=== PATIENT | male | born 1985 | race Caucasian/White ===

== ENCOUNTER 2019-04-13 10:36 | Inpatient (IN) | payer OTHER ==
[~2019-04-13] VITALS: Ht 188 cm; Wt 94.0 kg
[2019-04-13 11:42] VITALS: BP 128/82
--- NOTE | 2019-04-13 11:42 | NUR ---
33 year old MALE admitted to room # 506-2 for stabilization. Reports an addiction to HEROIN,AND ALCOHOL last used 8 hours prior to admission. Compliant with admission procedure. Patient denies any anxiety. See assessment forms for additional information about patient status.
[2019-04-13 12:34] LABS: BILIRUBIN NEGATIVE (NEGATIVE); BLOOD NEGATIVE (NEGATIVE); CLARITY CLEAR (CLEAR); COLOR YELLOW (YELLOW); GLUCOSE NEGATIVE (NEGATIVE); KETONE NEGATIVE (NEGATIVE); LEUKO ESTERASE TRACE (NEGATIVE); NITRITE NEGATIVE (NEGATIVE); SPECIFIC GRAVITY 1.025 (1.005-1.030); UROBILINOGEN 0.2 E.U./dl (0.2-1.0)
[2019-04-13 12:39] LABS: URINE AMPHETAMINES < 1000 (1000ng/ml); URINE BARBITURATES > 200 (200ng/ml); URINE BENZODIAZEPINES < 200 (200ng/ml); URINE CANNABINOIDS (THC) > 50 (50ng/ml); URINE COCAINE > 300 (300ng/ml); URINE METHADONE < 300 (300ng/ml); URINE OPIATES < 300 (300ng/ml); URINE PHENCYCLIDINE < 25 (25ng/ml)
[2019-04-13 12:50] LABS: MUCOUS TRACE; WBC 31-40 wbc/hpf (0-5)
--- NOTE | 2019-04-13 12:55 | NUR ---
IV started left arm with #22 protective cath after 0 attempts. Site prepped with Chloroprep. Sterile dressing applied. Patient tolerated procedure well. CHICHI BALTAZAR
[2019-04-13 12:56] LABS: BASO % 0.5 % (0.0-1.0); EOS # 0.1 10*3/uL (0.0-0.4); EOS % 0.9 % (1.0-4.0); HEMATOCRIT 43.6 % (42.0-52.0); HEMOGLOBIN 14.4 g/dl (14.0-18.0); LYMPH # 1.5 10*3/uL (1.3-4.4); LYMPH % 16.6 % (27.0-41.0); MEAN CORPUSCULAR HGB 29.4 pg (27.0-31.0); MEAN PLATELET VOLUME 10.2 fl (9.6-12.3); MONO # 0.5 10*3/uL (0.1-1.0); MONO % 5.5 % (3.0-9.0); NEUT # 6.7 10*3/uL (2.3-7.9); NEUT % 76.3 % (47.0-73.0); PLATELET COUNT AUTOMATED 222 10*3/uL (130-400); RED CELL DISTRI WIDTH 12.1 % (0-14.5); WHITE BLOOD COUNT 8.7 10*3/uL (4.8-10.8)
--- NOTE | 2019-04-13 13:01 | NUR ---
MEDICATED WITH BENTYL ROBAXIN AND VISTARIL PER ORDERS.
[2019-04-13 13:10] LABS: ALBUMIN 3.5 gm/dl (3.1-4.5); ALKALINE PHOSPHATASE 70 U/L (45-117); BUN 14 mg/dl (7-24); CHLORIDE 108 mmol/L (98-107); CREATININE 1.07 mg/dL (0.70-1.30); POTASSIUM 3.8 mmol/L (3.5-5.1); SGOT/AST 24 IU/L (3-35); SGPT/ALT 54 U/L (12-78); SODIUM 140 mmol/L (136-145); TOTAL PROTEIN 6.9 gm/dL (6.4-8.2)
[2019-04-13 13:14] LABS: ETHYL ALCOHOL < 3.0 mg/dl (<3)
--- NOTE | 2019-04-13 14:48 | NUR ---
BENTYL ROBAXIN AND VISTARIL HELPED, ALONG WITH STRAIGHT SUBUTEX AND LIBRIUM EARLIER. NICOTINE INHALER JUST DISPENCED WELL.
[2019-04-13 16:00] VITALS: BP 133/71
--- NOTE | 2019-04-13 17:02 | NUR ---
Patient displaying withdrawal symptoms, including: irritability, anxiousness, restlessness and agitation, complicated by impulsive behavior. Patient scores a 5 on the withdrawal scale. Scheduled LIBRIUM /PRN IV ATIVAN medications provided, doctor MUMTAZ PRESENT &notified of patient's agitation and AMA potential. Will continue to monitor medication effectiveness. PATIENT C/O SOME NAUSEA BUT JUST ORDERED A VERY LARGE HEAVY DINNER. AMBULATING IN HART FREQ. REMINDED TO NOT LEAVE THE FLOOR.
--- NOTE | 2019-04-13 18:13 | NUR ---
Patient displaying withdrawal symptoms, including: irritability, anxiousness, restlessness and agitation, complicated by impulsive behavior. Patient scores a 7 on the withdrawal scale. CIWA 17 AFTER IV ATIVAN. PRN medications ZOFRAN, ROBAXIN, VISTARIL, MOTRIN GIVEN. Will continue to monitor medication effectiveness.
--- NOTE | 2019-04-13 18:27 | NUR ---
WALKED PAST PATIENT ROOM AND PATIENT IS LYING IN BED WITH VISIBLE PERSPIRATION, LEGS JERKING IN CONSTANT MOTION AND ROLLING ABOUT.
--- NOTE | 2019-04-13 19:13 | NUR ---
INFORMED THAT PATIENT IS HAVING DETOX SYMPTOMS AT THIS TIME AND MEDICATION NOT BEING EFFECTIVE, PATIENT IS SWEATING/ANXIOUS/TREMORS. STATES TO CHANGE IV ATIVEN FROM 6 TO Q4HR PRN AND TO GIVE ADDITIONAL X1 DOSE 2MG IV ATIVAN.
--- NOTE | 2019-04-13 19:45 | NUR ---
PATIENT MEDICATED WITH X1 DOSE IV 2MG ATIVAN. WILL MONITOR
[2019-04-13 20:00] VITALS: BP 131/76
--- NOTE | 2019-04-13 20:45 | NUR ---
PATIENT RESTING IN BED, NO OVERT DISTRESS NOTED. EYES CLOSED. RESP ARE ERND ON ROOM AIR. X1 DOSE IV ATIVAN EFFECTIVE.
--- NOTE | 2019-04-13 21:08 | NUR ---
PATIENT MEDICATED WITH BENTYL, TRAZADONE AND TYLENOL FOR WITHDRAWAL SYMPTOMS AND FOR INSOMNIA. WILL MONITOR
--- NOTE | 2019-04-13 23:09 | NUR ---
PATIENT MEDICATED WITH IV ATIVAN 2MG FOR COMPLAINTS OF ANXIETY AND AGITATION. WILL CONTINUE TO MONITOR. CALL LIGHT IN REACH.
[2019-04-14] VITALS: BP 131/76
[2019-04-14 08:00] VITALS: BP 136/79
--- NOTE | 2019-04-14 10:05 | NUR ---
PATIENT MEDICATED WITH ROBAXIN,BENTYL,MOTRIN,ZOFRN,AND VISTARIL PER ORDERS AND REQUEST.
--- NOTE | 2019-04-14 11:37 | NUR ---
ROBAXIN,BENTYL,VISTARIL,MOTRIN,AND ZOFRAN HELPED THAT WAS GIVEN EARLIER. PATIENT SHOWERED AND IS RESTING.
[2019-04-14 12:00] VITALS: BP 121/66
--- NOTE | 2019-04-14 13:16 | NUR ---
PATIENT STATED THAT HE WOULD LIKE TO FOLLOW UP WITH [facility] IN [place] FOR HIS AFTERCARE PLAN. PATIENT IS WANTING THE VIVITROL SHOT. DENNISE SANTOS B.A. CLINICAL SAFETY SPECIALIST
--- NOTE | 2019-04-14 14:09 | NUR ---
WHILE MEDICATING PATIENT WITH STRAIGHT LIBRIUM AND SUBUTEX HE IS REQUESTING ATIVAN WELL. EDUCATED TO SEE IF THESE STRAIGHT MEDICATIONS HELP FIRST THEN CAN GIVE ATIVAN IF STILL NEEDED.
--- NOTE | 2019-04-14 15:32 | NUR ---
MEDICATED WITH ATIVAN PER ORDER AND REQUEST.
[2019-04-14 16:00] VITALS: BP 127/66
[2019-04-14 20:00] VITALS: BP 131/73
--- NOTE | 2019-04-14 21:24 | NUR ---
PATIENT MEDICATED WITH IV ATIVAN 2MG FOR COMPLAINTS OF ANXIETY AND AGITATION. WILL CONTINUE TO MONITOR. CALL LIGHT IN REACH.
--- NOTE | 2019-04-14 21:29 | NUR ---
MEDICATED WITH TRAZODONE FOR COMPLAINTS OF INSOMNIA.
[2019-04-15] VITALS: BP 131/74
[2019-04-15 08:00] VITALS: BP 130/82
--- NOTE | 2019-04-15 08:13 | NUR ---
PATIENT COMPLAINS OF ANXIETY. MEDICATED PER ORDER. WILL CONTINUE TO MONITOR FOR RELIEF. VOICES NO OTHER CONCERNS AT THIS TIME. RESTING IN BED, CALL LIGHT WITHIN REACH.
--- NOTE | 2019-04-15 11:40 | NUR ---
PATIENT COMPLAINS OF ANXIETY. MEDICATED PER ORDER. WILL CONTINUE TO MONITOR FOR RELIEF. VOICES NO OTHER CONCERNS AT THIS TIME. RESTING IN BED. CALL LIGHT WITH IN REACH.
--- NOTE | 2019-04-15 11:59 | NUR ---
MSIV started right wrist with #22 protective cath after 1 attempts. Site prepped with Chloroprep. Sterile dressing applied. Patient tolerated procedure well. NEGRO CARY
--- NOTE | 2019-04-15 12:06 | NUR ---
PATIENT CONTINUED TO VOICE COMPLAINT OF ANXIETY. MEDICATED WITH VISTARIL. WILL CONTINUE TO MONITOR FOR RELIEF. NO OTHER CONCERNS AT THIS TIME. RESTING IN BED. CALL LIGHT WITHIN REACH.
--- NOTE | 2019-04-15 12:54 | NUR ---
PATIENT IS GOING TO FOLLOW UP WITH [facility] IN [place] FOR OUTPATIENT TREATMENT. PATIENT IS WANTING THE VIVITROL SHOT. DENNISE SANTOS B.A. RELIGION PROFESSOR
--- NOTE | 2019-04-15 13:40 | NUR ---
Shift chart check completed.
--- NOTE | 2019-04-15 15:44 | NUR ---
PATIENT COMPLAINS OF ANXIETY. MEDICATED PER ORDER. VERBALIZED RELIEF. VOICES NO OTHER CONCERNS AT THIS TIME. RESTING IN BED. CALL LIGHT WITHIN REACH.
[2019-04-15 16:00] VITALS: BP 127/73
--- NOTE | 2019-04-15 16:53 | NUR ---
MSPatient signed out AMA. Patient encouraged to stay and advised of possible consequences of premature discharge. Physician DR. PANDYA and yarding supervisor FRANCESCA notified. Patient instructed what to do regarding care post-departure from the hospital; emergency phone numbers provided. HEP LOCK REMOVED PER PATIENT REQUEST. TELEMETRY ACCOUNTED FOR. KATE HOWELL
== END 2019-04-15 16:53 | disposition left against medical advice (07) | DRG 894 ==
LOC: 5E 10:36
PROVIDERS: Internal Medicine; Student in an Organized Health Care Education/Training Program; ADMIT Family Medicine
DX: F11.23 Opioid dependence with withdrawal (principal); E87.1 Hypo-osmolality and hyponatremia; F10.239 Alcohol dependence with withdrawal, unspecified; E87.8 Other disorders of electrolyte and fluid balance, not elsewhere classified; F32.9 Major depressive disorder, single episode, unspecified; F14.10 Cocaine abuse, uncomplicated; F12.10 Cannabis abuse, uncomplicated; F41.9 Anxiety disorder, unspecified; G47.00 Insomnia, unspecified; F17.210 Nicotine dependence, cigarettes, uncomplicated; Z83.3 Family history of diabetes mellitus; Z84.1 Family history of disorders of kidney and ureter